=== PATIENT | female | born 1960 | race Two or more races ===

== ENCOUNTER 2017-06-18 17:14 | Emergency (ER) | payer MEDICAID, OTHER ==
[~2017-06-18] VITALS: Ht 152.4 cm; Wt 80.0 kg
[2017-06-18] MEDS ORDERED: ASPI-1159 PO (17:37)
[2017-06-18] MEDS ORDERED: AMLO2.5T2 PO (17:37)
[2017-06-19] MEDS ORDERED: AMOXICILLIN/POTASSIUM CLAVULANATE 875/125MG TAB PO ONE (00:30)
[2017-06-19] MEDS ORDERED: IBUPROFEN 800MG TABLET PO ONE (00:30)
[2017-06-19 01:25] VITALS: BP 134/75
== END 2017-06-19 01:35 | disposition home or self-care (01) ==
LOC: ER 19:54
DX: S51.851A Open bite of right forearm, initial encounter (principal); I10 Essential (primary) hypertension; Z79.82 Long term (current) use of aspirin; W54.0XXA Bitten by dog, initial encounter; Y93.89 Activity, other specified; Y92.89 Other specified places as the place of occurrence of the external cause; Y99.8 Other external cause status
CPT/HCPCS: 73090; 99284

== ENCOUNTER 2020-06-22 10:59 | Emergency (ER) | payer OTHER ==
[~2020-06-22] VITALS: Ht 157.5 cm; Wt 82.0 kg
[~2020-06-22 10:59] MED LIST: AMLO2.5T2 PO; ASPI-1497 PO
[2020-06-22] MEDS ORDERED: MORPHINE SULFATE 2 MG/ML CPJ (NOT FOR IM USE) IV ONE (11:45)
[2020-06-22] MEDS ORDERED: SODIUM CHLORIDE 0.9% 1,000 ML IV ONE (11:45)
[2020-06-22 11:53] LABS: BASOPHILS % 1.3 % (0.0-2.0); EOSINOPHILS % 5.3 % (0.0-5.0); HEMATOCRIT. 31.3 % (36.0-48.0); HEMOGLOBIN. 10.3 g/dL (12.0-16.0); LYMPHOCYTES % 28.9 % (20.0-50.0); MEAN CORPUSCULAR VOLUME 79.1 fL (81.0-99.0); MONOCYTES % 6.8 % (2.0-8.0); NEUTROPHILS % 57.7 % (40.0-76.0); PLATELET 184 x1000/uL (130-400); RED BLOOD CELL COUNT 3.96 mill/uL (4.2-5.4); RED CELL DISTRIBUTION WIDTH 14.7 % (11.6-14.6)
[2020-06-22 12:00] LABS: CHLORIDE 107 mEq/L (98-107)
[2020-06-22 12:58] LABS: PROTHROMBIN TIME 10.8 sec (9.6-11.0)
[2020-06-22 13:25] VITALS: BP 148/79
== END 2020-06-22 13:44 | disposition home or self-care (01) ==
LOC: ER 10:59
DX: S09.8XXA Other specified injuries of head, initial encounter (principal); D50.9 Iron deficiency anemia, unspecified; N28.9 Disorder of kidney and ureter, unspecified; E78.00 Pure hypercholesterolemia, unspecified; I10 Essential (primary) hypertension; Y08.89XA Assault by other specified means, initial encounter; Y93.89 Activity, other specified; Y92.9 Unspecified place or not applicable; Z90.49 Acquired absence of other specified parts of digestive tract
CPT/HCPCS: 36415; 70450; 71045; 80053; 84484; 85025; 85610; 93005; 96361; 96374; 99285; J2270; J7030

== ENCOUNTER 2021-07-23 14:47 | Emergency (ER) | payer OTHER ==
[~2021-07-23] VITALS: Ht 157.5 cm; Wt 71.0 kg
[2021-07-23 15:18] VITALS: BP 141/94
== END 2021-07-23 21:30 | disposition left against medical advice (07) ==
LOC: ER 15:00
DX: M79.601 Pain in right arm (principal); Z53.21 Procedure and treatment not carried out due to patient leaving prior to being seen by health care provider